=== PATIENT | male | born 1955 | race Caucasian/White ===

== ENCOUNTER 2018-08-18 02:36 | Emergency (ER) | payer OTHER ==
[~2018-08-18] VITALS: Ht 160 cm; Wt 65.3 kg
[2018-08-18 03:01] VITALS: Ht 160 cm; Wt 65.3 kg
--- NOTE | 2018-08-18 04:18 | ERD ---
ER Documentation Chief Complaint Chief Complaint left big toe blister x 4 days HPI This is a 63-year-old male who presents here in emergency department with complaints of blister to medial area of his left big toe. Stated that this started 4 days ago with a blister. Stated that the blister popped out after work, after he removed his shoe. Denies headache, head injury, loss of consciousness, dizziness, neck pain, neck stiffness, throat pain, difficulty swallowing, difficulty breathing lying flat, shoulder pain, chest pain, back pain, abdominal pain, nausea, vomiting, constipation, diarrhea, urinary symptoms, loss of bowel and bladder control, trauma, injury, falls, difficulty walking due to pain, numbness or tingling sensation, calf pain, recent travel, recent major surgery in the last 3 weeks, calf pain, recent long travel, recent exposure to any illness, recent antibiotic use in the last 3 months, fever, chills, seizures. Past medical history: Diabetes. Hypertension. High cholesterol. Medication: Metformin, Januvia, glyburide. Simvastatin. Lisinopril. Surgical history: Social: Denies smoking, use of alcoholic beverages, use of illegal drugs. ROS All systems reviewed and are negative except as per history of present illness. Medications Home Meds Active Scripts Mupirocin* (Bactroban*) 2% -22 Gram Oint...g., 1 APPLIC TOP BID for 7 Days, EA Prov:PASILABAN,KLAR F 08/18/18 Cephalexin* (Keflex*) 500 Mg Capsule, 500 MG PO TID for 7 Days, CAP Prov:PASILABAN,KLAR F 08/18/18 Allergies Allergies: Coded Allergies: No Known Allergy (Unverified , 01/09/13) PMhx/Soc History of Surgery: No Anesthesia Reaction: No Hx Neurological Disorder: No Hx Respiratory Disorders: No Hx Cardiac Disorders: No Hx Psychiatric Problems: No Hx Miscellaneous Medical Probl: No Hx Alcohol Use: No Hx Substance Use: No Hx Tobacco Use: No Smoking Status: Never smoker Physical Exam Vitals Physical Exam Const: No acute distress Head: Atraumatic Eyes: Normal Conjunctiva ENT: Normal External Ears, Nose and Mouth. Neck: Full range of motion. No meningismus. Resp: Clear to auscultation bilaterally Cardio: Regular rate and rhythm, no murmurs Abd: Soft, non tender, non distended. Normal bowel sounds Skin: No petechiae or rashes Back: No midline or flank tenderness Ext: No cyanosis, or edema. Left big toe has a wound medially (this appears to have a previous blister that had popped out). No signs of gangrenous wound. Good and full range of motion of left big toe. Left pedal pulses within normal limits. Capillary refills to left lower extremity is less than 2 seconds. No signs of osteomyelitis. No signs of necrotizing fasciitis. No neurovascular deficit. Ambulatory with steady gait. Neur: Awake and alert. No neurological deficits. Psych: Normal Mood and Affect Results 24 hrs Current Medications Medications Dose Sig/Izabella Start Time Status Last (Trade) Ordered Route PRN Stop Time Admin Dose Reason Admin Bacitracin 1 applic ONCE ONCE 08/18/18 DC 08/18/18 (Bacitracin TOP 04:30 04:38 Oint (Ud)) 08/18/18 04:31 Procedures/MDM Diagnostic tests: Clinical exam. Treatment: Wound irrigation. Bacitracin. Dressing. Re-evaluation: No neurovascular deficits. Differential diagnosis I have low suspicion for sepsis, osteomyelitis, necrotizing fasciitis, onychomycosis, felon, paronychia. Final diagnosis: Infected wound. Patient is insisting to be prescribed with antibiotic because he is diabetic and and ointment. Prescription: Keflex. Bactroban. Follow-up with PCP in the next 24-48 hours. Follow-up with marine pilot in the next 24 to 48 hours. Come back here in the emergency department for any new symptoms or any worsening symptoms. All questions and concerns were answered. Patient and family members verbalized understanding and agreed with plan of care. Hemodynamically stable on discharge. Departure Diagnosis: Primary Impression: Infected wound Condition: Stable Additional Instructions: Follow-up with PCP in the next 24-48 hours. Follow-up with marine pilot in the next 24 to 48 hours. Come back here in the emergency department for any new symptoms or any worsening symptoms. LETY FOY August 18, 2018 04:18
[2018-08-18] MEDS ORDERED: BACITRACIN 0.9 GM OINT TOP ONE (04:30)
[2018-08-18] MEDS ORDERED: MUPI22OI2 TOP (04:52)
[2018-08-18] MEDS ORDERED: CEPH-443 PO (04:52)
[2018-08-18 05:04] VITALS: BP 138/72; PULSE 68; RESP 15
== END 2018-08-18 05:04 | disposition home or self-care (01) ==
LOC: FTE 02:36
DX: S91.102A Unspecified open wound of left great toe without damage to nail, initial encounter (principal); E11.9 Type 2 diabetes mellitus without complications; I10 Essential (primary) hypertension; X58.XXXA Exposure to other specified factors, initial encounter; Y92.9 Unspecified place or not applicable
CPT/HCPCS: 99283